=== PATIENT | female | born 1980 | race Caucasian/White ===

== ENCOUNTER → 2024-04-26 11:22 | Outpatient (REF) | payer OTHER, SELFPAY ==
[2024-04-29 02:33] LABS: Quantiferon Mitogen minus NIL 9.99 IU/mL; Quantiferon NIL 0.01 IU/mL; Quantiferon TB Gold Plus Negative (Negative)
== END ==
LOC: OHS 11:22
PROVIDERS: ATTENDING PHYSICIAN Nurse Practitioner Family
DX: Z23 Encounter for immunization (principal)
CPT/HCPCS: 36415; 86480; 86787

== ENCOUNTER → 2024-06-18 08:37 | Outpatient (REF) | payer BC, SELFPAY | LOC: WDC 08:37 | PROVIDERS: ATTENDING PHYSICIAN Obstetrics & Gynecology; FAMILY PHYSICIAN Internal Medicine | DX: Z12.31 Encounter for screening mammogram for malignant neoplasm of breast (principal) | CPT/HCPCS: 77063; 77067 ==

== ENCOUNTER → 2024-10-06 10:41 | Outpatient (REF) | payer BC, SELFPAY | LOC: RAD 10:41 | PROVIDERS: ATTENDING PHYSICIAN Obstetrics & Gynecology; FAMILY PHYSICIAN Internal Medicine | DX: D25.9 Leiomyoma of uterus, unspecified (principal) | CPT/HCPCS: 76830; 76856 ==

== ENCOUNTER 2024-11-15 04:11 | Emergency (ER) | payer BC, SELFPAY ==
[2024-11-15] VITALS (7 sets, daily range): BP systolic 110–126; BP diastolic 56–66; BMI 27.0
[2024-11-15 05:49] LABS: % Basophils 0.8 % (0-2); % Eosinophils 5.2 % (0-6); % Immature Granulocytes 0.4 % (0-0.5); % Lymphocytes 25.9 % (20.5-51.1); % Monocytes 11.9 % (1.7-9.3); % Neutrophils 55.8 % (42.2-75.2); Absolute Eosinophils 0.3 10^3/uL (0-0.7); Absolute Lymphocytes 1.4 10^3/uL (1.2-3.4); Absolute Monocytes 0.6 10^3/uL (0.1-0.6); Absolute Neutrophils 2.9 10^3/uL (1.4-6.5); Hematocrit 34.1 % (37.0-47.0); Hemoglobin 11.7 g/dL (12.0-16.0); Mean Corp Hgb Conc. 34.3 g/dL (33.0-37.0); Mean Corpuscular Hgb 31.1 pg (27.0-31.0); Mean Corpuscular Volume 90.7 fL (81.0-99.0); Mean Platelet Volume 10.5 fL (7.4-10.4); Nucleated Red Blood Cells % 0 %; Platelet Count 196 10^3/uL (130-400); Red Blood Cell Count 3.76 10^6/uL (4.20-5.40); Red Cell Dist. Width 12.9 % (11.5-14.5); White Blood Cell Count 5.2 10^3/uL (4.8-10.8)
[2024-11-15 06:09] LABS: ALT (SGPT) 17 U/L (0-35); AST (SGOT) 19 U/L (14-36); Albumin 3.5 g/dl (3.5-5.0); Alkaline Phosphatase 40 U/L (38-126); Blood Urea Nitrogen 17 mg/dl (7-17); Calcium 8.7 mg/dl (8.4-10.2); Carbon Dioxide 29 mmol/L (22-30); Chloride 104 mmol/L (98-107); Estimated Creatinine Clearance 106 ml/min; Glucose 104 mg/dl (70-99); Potassium 3.7 mmol/L (3.5-5.1); Sodium 139 mmol/L (135-145); Total Bilirubin 0.3 mg/dl (0.2-1.3); Total Protein 6.1 g/dl (6.3-8.2); eGFR > 60.00
--- NOTE | 2024-11-15 06:17 | ED.GENMED ---
History of Present Illness
General
Chief Complaint: Extremity Pain (non-traumatic)
Time Seen by Provider: 11/15/24 06:17
History of Present Illness
History of Present Illness:
TIME OF INITIAL ENCOUNTER: 6:20 AM
HPI: Over the last few days, the patient's been having generalized weakness and achiness. She presumed that she had a viral syndrome. A PA at her primary care doctor placed her on doxycycline. This morning around 2 AM when she woke up to take the
dog out, she developed rather severe diffuse arthralgias primarily in the wrists and knees. She took Motrin around that time and currently feels improved. Some arthralgias still persist. She had fevers a few days ago but no longer has fevers.
EXAM:
GENERAL: Well appearing in no distress, afebrile
HEENT: Moist oral mucosa
CARDIOVASCULAR: No murmurs, normal heart rate, regular rhythm, No chest wall tenderness
PULMONARY: No respiratory distress, breath sounds are clear and equal
ABDOMEN: Soft with no peritoneal signs, no tenderness
NEUROLOGIC: Excellent strength all extremities, no coordination deficits
PSYCHIATRIC: Appropriate mental status, normal insight and judgement
EXTREMITIES: Nontender, no edema, moves all extremities equally, she has good active range of motion to the wrists and knees, no significant tenderness
SKIN: No rash, no lesions
NUMBER AND COMPLEXITY OF PROBLEMS ADDRESSED AT THE ENCOUNTER
� Chronic conditions affecting care: IBS, rosacea, GERD, insomnia, iron deficiency anemia
� Acute Exacerbation and/or Progression of Chronic Illness: This is an acute problem
� Differential Diagnosis includes: Postviral arthralgia, Lyme disease, rheumatologic condition
AMOUNT AND/OR COMPLEXITY OF DATA TO BE REVIEWED AND ANALYZED
� I performed an independent evaluation of and my interpretation is:
EKG:
CT:
X-rays:
Laboratory Studies: White count 5.2, hemoglobin 11.7, chemistries unremarkable, CRP/sed rate normal, Lyme pending
Other:
� Review of other/old records: I reviewed records, the patient was here for delivery in 2020
� Clinical information was obtained by an independent historian: None needed
� Prescriptions/Medications Considered but not given:
� Further testing considered but not performed: Considered x-ray however the joint pains are rather diffuse and not isolated to one particular joint and there has been no trauma
RISK OF COMPLICATIONS AND/OR MORBIDITY OR MORTALITY OF PATIENT MANAGEMENT
� Social determinants of health affecting care: Lives at home, works as a nurse here
� Discussion with other providers:
� Escalation of care including admission/observation vs risk of discharge considered: The patient describes a viral type syndrome but now has rather significant arthralgias primarily in the wrists and knees. She reports
significant improvement already just with Motrin at home. Will give a dose of Toradol here. She feels well-hydrated.
ANY OTHER UPDATES:
7:50 AM: I reassessed patient. The patient was given Toradol but reports no significant additional improvement. However earlier she did improve with Motrin that she took earlier. CRP and sed rate are also normal. Lyme. Will start steroids.
Past History
Past History
ED Past Medical History: GERD and Other (chronic sinusitis, acne, heart murmur, bilateral elbow tendinitis; thoracic spine arthritis, S Gastritis, IBS,)
ED Past Surgical History: Tonsilectomy and Other (deviated septum repair)
Social History
Tobacco: Non-smoker
Alcohol: None
Drug: None
Personal:
Living: with family
Employment: Employed
Phy Exam
Physical Exam
Physical Exam:
See HPI
Course
Orders/Labs/Results
Orders:
Orders
11/15/24 05:41
C-Reactive Protein Urgent
Comment: ADD ON
Complete Blood Count/With Diff Urgent
Comprehensive Metabolic Panel Urgent
Erythrocyte Sed Rate Urgent
Comment: ADD ON
Lyme Progressive Urgent
11/15/24 06:30
Add On- LAB Urgent
Tests Added?: cRP and ESR
11/15/24 06:31
Ketorolac [Toradol] 15 mg IV NOW STA
11/15/24 07:01
Add On- LAB Urgent
Comments:: lyme progressive
Tests Added?: lyme progressive
11/15/24 08:06
Prednisone [Deltasone] 50 mg PO NOW STA
Abnormal Lab Results
11/15/24
05:41
RBC 3.76 L 10^6/uL
(4.20-5.40)
Hgb 11.7 L g/dL
(12.0-16.0)
Hct 34.1 L %
(37.0-47.0)
MCH 31.1 H pg
(27.0-31.0)
MPV 10.5 H fL
(7.4-10.4)
Monocytes % 11.9 H %
(1.7-9.3)
Creatinine 0.5 L mg/dL
(0.6-1.0)
Glucose 104 H mg/dl
(70-99)
Total Protein 6.1 L g/dl
(6.3-8.2)
11/15/24 05:41
11/15/24 05:41
Vital Signs
Initial and Last Documented VS:
Initial Vital Signs
Temp Pulse Resp BP Pulse Ox
36.5 C 82 18 125/56 98
11/15/24 04:13 11/15/24 04:13 11/15/24 04:13 11/15/24 04:13 11/15/24 04:13
Last Documented Vital Signs
Temp Pulse Resp BP Pulse Ox
36.5 C 82 18 125/61 99
11/15/24 04:13 11/15/24 04:13 11/15/24 04:13 11/15/24 05:00 11/15/24 05:15
*Critical Care Note
Total Time (30-74mins, 75-104mins- exclusive of procedures): Not Applicable
ED Attending Note
-
Portions of this chart may have been created with voice recognition software.� Occasional wrong word or��sound alike� substitutions may have occurred due to the inherent limitations of voice recognition software.
Discharge Plan
Departure
Patient Disposition: Home (Routine Discharge)
Date of Disposition: 11/15/24
Time of Disposition: 08:04
Patient with high blood pressure during this ER visit?: Yes
Discharge Problem:
Arthralgia
Instructions: BLOOD PRESSURE
Prescriptions:
New
prednisone 50 mg tablet
50 mg PO DAILY Qty: 4 0RF
No Action
cetirizine 10 MG tablet
10 mg PO PRN PRN (Reason: allergies)
omeprazole magnesium [Prilosec OTC] 20 MG tablet,delayed release (DR/EC)
40 mg PO PRN PRN (Reason: reflux)
acetaminophen 325 MG tablet
650 mg PO Q4HPRN PRN (Reason: mild pain) 0RF
sennosides-docusate sodium 1 TABLET tablet
1 tab PO DAILYPRN PRN (Reason: constipation) 0RF
oxycodone-acetaminophen 5 MG/325 MG tablet
1 tab PO Q4HPRN PRN (Reason: moderate pain) Qty: 10 0RF
ibuprofen 600 MG tablet
600 mg PO Q6HPRN PRN (Reason: cramps) Qty: 30 0RF
simethicone [Gas Relief 80 (simethicone)] 80 MG tablet,chewable
80 mg PO TIDPRN PRN (Reason: flatulence) 0RF
oxycodone-acetaminophen 5 MG/325 MG tablet
2 tab PO Q4HPRN PRN (Reason: severe pain) Qty: 10 0RF
Referrals:
Kvng Infante MD [Family Provider] -
Activity Restrictions/Additional Instructions:
The cause of your joint pain is unclear. Inflammatory markers including sed rate and CRP are both normal. It is possible you could have arthralgias related to a virus. Other basic blood work is unremarkable. Lyme testing is pending.
Interventions
Interventions:
*Risk Screen - Suicide Last Done: 11/15/24 04:13
*General Assessment Last Done: 11/15/24 04:57
*Neglect/Abuse Screening Last Done: 11/15/24 04:13
*ED COVID-19 Vaccine History Last Done: 11/15/24 04:57
ED-Skin Assessment Last Done: 11/15/24 05:45
ED-Musculoskeletal Assessment Last Done: 11/15/24 05:45
Discharge Date and Time
Print Language: [place]
[2024-11-15] MEDS: TORADOL 15 MG IV (06:59)
[2024-11-15 07:38] LABS: Erythrocyte Sed Rate 17 mm/hour (0-20)
[2024-11-15] MEDS: DELTASONE 50 MG PO (08:21)
== END 2024-11-15 08:34 | disposition home or self-care (01) ==
LOC: EMR 04:11
PROVIDERS: Emergency Medicine; EMERGENCY PHYSICIAN Emergency Medicine; FAMILY PHYSICIAN Internal Medicine
DX: R53.1 Weakness (principal); M25.532 Pain in left wrist; M25.531 Pain in right wrist; M25.562 Pain in left knee; M25.561 Pain in right knee; R03.0 Elevated blood-pressure reading, without diagnosis of hypertension; K58.9 Irritable bowel syndrome, unspecified; K21.9 Gastro-esophageal reflux disease without esophagitis; D50.9 Iron deficiency anemia, unspecified; L71.9 Rosacea, unspecified; Z88.1 Allergy status to other antibiotic agents; Z88.0 Allergy status to penicillin; Z88.2 Allergy status to sulfonamides
CPT/HCPCS: 99284; 96374; 80053; 85025; 85652; 86140; 86618

== ENCOUNTER → 2024-12-17 10:20 | Outpatient (REF) | payer BC, SELFPAY | LOC: RAD 10:20 | PROVIDERS: ATTENDING PHYSICIAN Otolaryngology; FAMILY PHYSICIAN Internal Medicine | DX: J32.0 Chronic maxillary sinusitis (principal) | CPT/HCPCS: 70486 ==

== ENCOUNTER 2025-01-08 15:23 | Emergency (ER) | payer SELFPAY ==
[2025-01-08 15:34] VITALS: BP 126/73
--- NOTE | 2025-01-08 17:00 | ED.GENMED ---
History of Present Illness
General
Chief Complaint: Musculo-Skeletal Complaint
Source: patient
Exam Limitations: none
Time Seen by Provider: 01/08/25 16:44
History of Present Illness
History of Present Illness:
44-year-old female slipped on the ice coming into work today. Mild pain right shoulder. Mild buttock pain and mild right leg pain. No head injury no neck pain no chest pain or abdominal pain. No nausea or vomiting. No thinners. Symptoms are
mild in nature. Patient was able to work throughout the day.
Past History
Past History
ED Past Medical History: GERD and Other (chronic sinusitis, acne, heart murmur, bilateral elbow tendinitis; thoracic spine arthritis, S Gastritis, IBS,)
ED Past Surgical History: Tonsilectomy and Other (deviated septum repair)
Social History
Tobacco: Non-smoker
Alcohol: None
Drug: None
Personal:
Living: with family
Employment: Employed
Review of Systems
Review of Systems
All Other Systems: Not applicable
Respiratory: Reports no symptoms
Cardiac: Reports no symptoms
ABD/GI: Reports no symptoms
Phy Exam
Physical Exam
Physical Exam:
TRAUMA EXAM:
VITAL SIGNS: Vital signs reviewed, cooperative
DISTRESS: No active disease
EYES: Pupils reactive, no orbital trauma
NOSE: No deformity or epistaxis
FACE AND SCALP: No scalp or facial trauma
NECK: Supple nontender
BACK: Back nontender, pelvis stable to compression
RESPIRATORY: No distress, breath sounds normal, no tender chest wall
CARDIAC: No murmur, pulses equal and strong
ABDOMEN: Soft nontender bowel sounds normal
SKIN: Skin intact no bleeding, color normal
EXTREMITIES: No point tenderness to the right shoulder. Able to abduct adduct flex and extend without difficulty. No clavicle tenderness. No AC tenderness. Other extremities unremarkable
NEUROLOGICAL: Alert, oriented, no motor deficits
PSYCH: Mood affect normal
Course
Vital Signs
Initial and Last Documented VS:
Initial Vital Signs
Temp Pulse Resp BP Pulse Ox
98.7 F 78 17 126/73 100
01/08/25 15:34 01/08/25 15:34 01/08/25 15:34 01/08/25 15:34 01/08/25 15:34
Last Documented Vital Signs
Temp Pulse Resp BP Pulse Ox
98.7 F 78 17 126/73 100
01/08/25 15:34 01/08/25 15:34 01/08/25 15:34 01/08/25 15:34 01/08/25 15:34
MDM/Problems Addressed
Differential Diagnosis Includes:
Patient works throughout the day. Symptoms are minimal in nature. Offered x-rays although highly highly doubt bony injury or significant soft tissue injury. Very comfortable with outpatient not NSAIDs and outpatient observation. Patient is also
comfortable with this approach
*Pulse Oximetry
Patient hypoxic: no
*Critical Care Note
Total Time (30-74mins, 75-104mins- exclusive of procedures): Not Applicable
ED Attending Note
-
Portions of this chart may have been created with voice recognition software.� Occasional wrong word or��sound alike� substitutions may have occurred due to the inherent limitations of voice recognition software.
Discharge Plan
Departure
Patient Disposition: Home (Routine Discharge)
Date of Disposition: 01/08/25
Time of Disposition: 17:02
Patient with high blood pressure during this ER visit?: Yes
Discharge Problem:
Multiple contusions, Elevated blood pressure reading, Slipped on ice
Instructions: Contusion (DC), BLOOD PRESSURE
Prescriptions:
No Action
cetirizine 10 MG tablet
10 mg PO PRN PRN (Reason: allergies)
omeprazole magnesium [Prilosec OTC] 20 MG tablet,delayed release (DR/EC)
40 mg PO PRN PRN (Reason: reflux)
acetaminophen 325 MG tablet
650 mg PO Q4HPRN PRN (Reason: mild pain) 0RF
sennosides-docusate sodium 1 TABLET tablet
1 tab PO DAILYPRN PRN (Reason: constipation) 0RF
oxycodone-acetaminophen 5 MG/325 MG tablet
1 tab PO Q4HPRN PRN (Reason: moderate pain) Qty: 10 0RF
ibuprofen 600 MG tablet
600 mg PO Q6HPRN PRN (Reason: cramps) Qty: 30 0RF
simethicone [Gas Relief 80 (simethicone)] 80 MG tablet,chewable
80 mg PO TIDPRN PRN (Reason: flatulence) 0RF
oxycodone-acetaminophen 5 MG/325 MG tablet
2 tab PO Q4HPRN PRN (Reason: severe pain) Qty: 10 0RF
prednisone 50 mg tablet
50 mg PO DAILY Qty: 4 0RF
Activity Restrictions/Additional Instructions:
Advil or Motrin for pain you can also take Tylenol
Recheck with increasing pain numbness tingling weakness or any other trauma concerns including chest pain shortness of breath abdominal pain headache etc.
Interventions
Interventions:
*Risk Screen - Suicide Last Done: 01/08/25 15:38
*General Assessment Last Done: 01/08/25 15:38
*Neglect/Abuse Screening Last Done: 01/08/25 15:38
*ED COVID-19 Vaccine History Last Done: 01/08/25 15:38
Discharge Date and Time
Print Language: SAMMARIN[place]
== END 2025-01-08 17:14 | disposition home or self-care (01) ==
LOC: EMR 15:23
PROVIDERS: EMERGENCY PHYSICIAN Emergency Medicine; FAMILY PHYSICIAN Internal Medicine
DX: M25.511 Pain in right shoulder (principal); M79.604 Pain in right leg; R03.0 Elevated blood-pressure reading, without diagnosis of hypertension; W00.0XXA Fall on same level due to ice and snow, initial encounter; K21.9 Gastro-esophageal reflux disease without esophagitis; R01.1 Cardiac murmur, unspecified; K58.9 Irritable bowel syndrome, unspecified; Z87.19 Personal history of other diseases of the digestive system
CPT/HCPCS: 99283

== ENCOUNTER → 2025-07-01 08:02 | Outpatient (REF) | payer BC, SELFPAY | LOC: WDC 08:02 | PROVIDERS: ATTENDING PHYSICIAN Obstetrics & Gynecology; FAMILY PHYSICIAN Internal Medicine | DX: Z12.31 Encounter for screening mammogram for malignant neoplasm of breast (principal) | CPT/HCPCS: 77063; 77067 ==